=== PATIENT | female | born 1970 | race Two or more races ===

== ENCOUNTER 2022-08-06 10:45 | Inpatient (IN) | payer OTHER ==
[~2022-08-06] VITALS: Ht 167.6 cm; Wt 87.1 kg
== END 2022-08-13 08:32 | disposition home or self-care (01) | DRG 743 ==
LOC: O/R 08-12 05:50 → SURH 08-12 07:00 → O/R 08-12 08:29 → SURH 08-12 10:45 → OB/GYN 08-12 13:43
PROVIDERS: ADMIT Obstetrics & Gynecology Gynecology; ATTEND Obstetrics & Gynecology Gynecology
PROC: 0UT74ZZ Resection of Bilateral Fallopian Tubes, Percutaneous Endoscopic Approach (ICD-10-PCS; 2022-08-12)
PROC: 0UPH4YZ Removal of Other Device from Vagina and Cul-de-sac, Percutaneous Endoscopic Approach (ICD-10-PCS; 2022-08-12)
PROC: 0UT94ZZ Resection of Uterus, Percutaneous Endoscopic Approach (ICD-10-PCS; principal; 2022-08-12 07:00)
DX: N87.1 Moderate cervical dysplasia (principal); D25.1 Intramural leiomyoma of uterus; N72 Inflammatory disease of cervix uteri; N80.03 Adenomyosis of the uterus; Z20.822 Contact with and (suspected) exposure to COVID-19